=== PATIENT | female | born 1990 | race Asian ===

== ENCOUNTER 2017-11-10 16:05 | Emergency (ER) | payer BC, OTHER ==
--- NOTE | 2017-11-10 17:25 | ER Document Report ---
HPI - HPI Patient complains to provider of: Left knee pain and swelling Onset: Other - Saturday Onset/Duration: Gradual Pain Level: 4 Context: 27-year-old female started having left knee pain on Saturday it progressed to the point where when she woke up this morning it was swollen. Got worse after shopping this afternoon. Hurts when she tries to straighten it. 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 The procedure was done by Arturo Stevenson. Prior to the surgery she had several episodes of knee effusion that would be removed and replaced with steroid. After the surgery it is not swollen up until now. No fever or chills. No systemic symptoms. Associated Symptoms: None Exacerbated by: Movement, Walking Relieved by: Denies Similar symptoms previously: Yes Recently seen / treated by doctor: No - ROS ROS below otherwise negative: Yes Systems Reviewed and Negative: Yes All other systems reviewed and negative - CONSTITUTIONAL Constitutional: DENIES: Fever <MITZI CARTWRIGHT - Last Filed: 11/10/17 22:22> Past Medical History - General Information source: Patient - Social History Smoking Status: Unknown if Ever Smoked Frequency of alcohol use: None Drug Abuse: None Lives with: Spouse/Significant other Family History: Reviewed & Not Pertinent - Medical History Medical History: Negative Skin Medical History: Denies Hx MRSA Surgical Hx: Negative <MITZI CARTWRIGHT - Last Filed: 11/10/17 22:22> Vertical Provider Document - CONSTITUTIONAL Agree With Documented VS: Yes Exam Limitations: No Limitations - INFECTION CONTROL TRAVEL OUTSIDE OF THE [place] IN LAST 30 DAYS: No - HEENT HEENT: Normocephalic - NECK Neck: Supple - RESPIRATORY Respiratory: Breath Sounds Normal, No Respiratory Distress O2 Sat by Pulse Oximetry: 100 - CARDIOVASCULAR Cardiovascular: Regular Rate, Regular Rhythm - MUSCULOSKELETAL/EXTREMETIES Musculoskeletal/Extremeties: Tender, Edema - left knee effusion, warm anteriorly , pink anteriorly. distally no source of possible infection - NEURO Level of Consciousness: Awake, Alert, Appropriate Motor/Sensory: No Motor Deficit, No Sensory Deficit - DERM Integumentary: Warm, Dry <MITZI CARTWRIGHT - Last Filed: 11/10/17 22:22> Course - Vital Signs Vital signs: Temp Pulse Resp BP Pulse Ox 98.5 F 73 20 127/88 H 100 11/10/17 16:31 11/10/17 16:31 11/10/17 16:31 11/10/17 16:31 11/10/17 21:06 - Laboratory Result Diagrams: 11/10/17 18:58 Laboratory results interpreted by me: 11/10/17 18:58 WBC 11.3 H <DAYTON FELIPE - Last Filed: 11/10/17 21:27> - Re-evaluation Re-evalutation: 11/10/17 19:48 dr felipe consult, he will do the joint tap due to the tenderness, effusion and pain with ROM. 11/10/17 21:06 The synovial fluid was straw-colored viscous and has been sent to the lab for cell count Gram stain and culture. 11/10/17 21:56 The cell count shows 22,167 WBCs with 89% segs. RBCs 77. The Gram stain shows no bacteria no red blood cells and 1+ white blood cells seen. - Vital Signs Vital signs: Temp Pulse Resp BP Pulse Ox 98.5 F 73 20 127/88 H 100 11/10/17 16:31 11/10/17 16:31 11/10/17 16:31 11/10/17 16:31 11/10/17 16:31 - Laboratory Result Diagrams: 11/10/17 18:58 <MITZI CARTWRIGHT - Last Filed: 11/10/17 22:22> Procedures - Joint Aspiration Left Knee Time completed: 21:27 Consent obtained: Yes Joint aspiration pre-procedure: Chloraprep applied, Sterile drapes applied Anesthetic type: 1% Lidocaine w/epi mL's of anesthetic: 4 Needle size: 18 Amount/type of drainage: 20 cc of straw-colored fluid Number of attempts: 1 Complications: No Notes: The area was prepped with ChloraPrep and sterile dressings. The area medial to the joint was injected with 1% lidocaine with epi. An 18-gauge needle was inserted with a 20 cc syringe and straw-colored fluid was liberated. After approximately 20 cc of joint fluid, the syringe was changed over to an empty syringe but no further fluid was removed. I did insert the needle will further deep and again no further fluid. Patient had a Band-Aid placed over the needle insertion site. She tolerated the procedure about very well. <DAYTON FELIPE - Last Filed: 11/10/17 21:27> - Immobilization Left Knee Time completed: 22:21 Pre-Proc Neuro Vasc Exam: Normal Immobilizer type: Kang wrap Performed by: PCT Post-Proc Neuro Vasc Exam: Normal Alignment checked and good: Yes <MITZI CARTWRIGHT - Last Filed: 11/10/17 22:22> Discharge <SOLODAYTON - Last Filed: 11/10/17 21:27> <MITZI CARTWRIGHT - Last Filed: 11/10/17 22:22> - Discharge Clinical Impression: Inflammatory left knee effusion Condition: Good Disposition: HOME, SELF-CARE Instructions: Kang Wrap ([facility]), Anti-Inflammatory Medication ([facility]), Use of Crutches ([facility]), Ice & Elevation ([facility]), Knee Effusion ([facility]), Oral Narcotic Medication ([facility]) Additional Instructions: elevate ice kang wrap crutches- non weight bearing several days schedule appt with dr vann ([facility]) or dr jason for knee further evaluation to er any fever, increased pain, or concerns the fluid culture is pending in the [facility] all the labs, xray and cd given to you Forms: Return to School, Return to Work Referrals: ALYSSA JASON MD [ACTIVE STAFF] - Follow up tomorrow
--- NOTE | 2017-11-10 17:59 | RADIOLOGY REPORT (SQ) ---
EXAM DESCRIPTION: KNEE LEFT 4 VIEW COMPLETED DATE/TIME: 11/10/2017 5:47 pm REASON FOR STUDY: pain and swelling COMPARISON: None. NUMBER OF VIEWS: Four views. TECHNIQUE: AP, lateral, and both oblique radiographic images acquired of the left knee. LIMITATIONS: None. FINDINGS: MINERALIZATION: Normal. BONES: No acute fracture or dislocation. No worrisome bone lesions. JOINT: There is large joint effusion present SOFT TISSUES: No other soft tissue swelling. No radio-opaque foreign body. OTHER: No other significant finding. IMPRESSION: Large joint effusion without evidence of acute bony abnormality. TECHNICAL DOCUMENTATION: JOB ID: [id number] [employer]- All Rights Reserved Reading location - IP/workstation name: [email or web address]
[2017-11-10 19:10] LABS: ABSOLUTE BASOPHILS # (AUTO) 0.1 10^3/uL (0.0-0.2); ABSOLUTE EOSINOPHILS # (AUTO) 0.2 10^3/uL (0.0-0.6); ABSOLUTE LYMPHOCYTES (AUTO) 2.9 10^3/uL (0.5-4.7); ABSOLUTE MONOCYTES (AUTO) 0.9 10^3/uL (0.1-1.4); ABSOLUTE NEUT (AUTO) 7.3 10^3/uL (1.7-8.2); BASOPHILS % (AUTO) 0.6 % (0-2); EOSINOPHILS % (AUTO) 1.6 % (0-6); HEMATOCRIT 40.3 % (36.0-47.0); HEMOGLOBIN 13.2 g/dL (12.0-15.5); LYMPHOCYTES % (AUTO) 25.5 % (13-45); MEAN CORPUSCULAR HEMOGLOBIN 28.8 pg (27.0-33.4); MEAN CORPUSCULAR HGB CONC 32.7 g/dL (32.0-36.0); MEAN CORPUSCULAR VOLUME 88 fl (80-97); PLATELET COUNT 334 10^3/uL (150-450); RED BLOOD COUNT 4.58 10^6/uL (3.72-5.28); RED CELL DISTRIBUTION WIDTH 12.7 % (11.5-14.0); SEGMENTED NEUTROPHILS % (AUTO) 64.3 % (42-78); TOTAL CELLS COUNTED % (AUTO) 100 %; WHITE BLOOD COUNT 11.3 10^3/uL (4.0-10.5)
[2017-11-10 19:34] LABS: URIC ACID 3.2 mg/dL (2.5-6.2)
[2017-11-10 19:37] LABS: C-REACTIVE PROTEIN < 5.0 mg/L (<10.0)
[2017-11-10 19:47] LABS: ERYTHROCYTE SEDIMENTATION RATE 12 mm/hr (0-20)
[2017-11-10] MEDS ORDERED: LIDOCAINE 2%/EPINEPHRINE INJ 20 ML VIAL INJ ONE (19:49)
[2017-11-10] MEDS ORDERED: LORAZEPAM 1 MG TABLET PO ONE (19:58)
[2017-11-10 20:45] LABS: FLUID COLOR YELLOW; FLUID SOURCE KNEE; FLUID TYPE SYNOVIAL
[2017-11-10 20:46] LABS: FLUID APPEARANCE HAZY; FLUID VISCOSITY MODERATELY VISCOUS
[2017-11-10] MEDS ORDERED: HYDROCODONE/ACETAMINOPHEN 5-325 MG TABLET PO ONE (22:09)
[2017-11-10] MEDS ORDERED: HYDROCODONE/ACETAMINOPHEN 5-325 MG (6 TAB/ER DISP) PO PRN (22:09)
[2017-11-10] MEDS ORDERED: ONDANSETRON 4 MG TAB.RAPDIS PO ONE (22:15)
[2017-11-10 22:42] VITALS: BP 133/89
== END 2017-11-10 22:42 | disposition home or self-care (01) ==
LOC: ER 16:05
DX: M17.12 Unilateral primary osteoarthritis, left knee (principal); M25.462 Effusion, left knee; M25.562 Pain in left knee; Z98.890 Other specified postprocedural states
CPT/HCPCS: 99283; 36415; 87205; 87070; 84550; 85025; 85652; 89050; 87075; 86140; 73562; 10021; S0119; J3490